=== PATIENT | female | born 1965 | race Caucasian/White ===

== ENCOUNTER 2025-07-01 09:13 | Outpatient (OUT) | payer OTHER, SELFPAY ==
--- OUTSIDE RECORDS SUMMARY | 2025-06-21 21:02 | XMS_ITS | Continuity of Care Document ---
Author Organization [facility] Address [address] [place] [address] Phone Care Team Providers Care Animal Control Officer Name Role Phone Alen Ban HUNG Primary Care Provider Rochelle Knapp APRN Attending Provider Kal Jarrett DO Attending Provider [phone] Ban Lowry DO Attending Provider Care Teams Patient Care Team Team Status: Active Member Role Status Dates Ban Lowry DO Primary Care Provider Active Visit Care Team Team Status: Inactive Member Role Status Dates Ban Lowry DO Primary Care Provider Active Start: March 29, 2025 End: March 29, 2025 Rochelle Knapp APRN Attending Provider Active Start: March 29, 2025 End: March 29, 2025 Visit Care Team Team Status: Inactive Member Role Status Dates Ban Lorwy DO Primary Care Provider Active Start: April 15, 2025 End: April 15, 2025 Kal ALEXANDRE DO [facility] Attending Provider Active Start: April 15, 2025 End: April 15, 2025 Visit Care Team Team Status: Inactive Member Role Status Dates Ban Lowry DO Primary Care Provider Active Start: May 14, 2025 End: May 14, 2025 Ban Lowry DO Attending Provider Active S tart: May 14, 2025 End: May 14, 2025 Visit Care Team Team Status: Inactive Member Role Status Dates Ban Lowry Primary Care Provider Active Start: May 14, 2025 End: May 14, 2025 Ban Lowry DO Attending Provider Active S tart: May 14, 2025 End: May 14, 2025 Visit Care Team Team Status: Inactive Member Role Status Dates Ban Lowry DO Primary Care Provider Active Start: May 24, 2025 End: May 24, 2025 Rochelle Knapp APRN Attending Provider Active Start: May 24, 2025 End: May 24, 2025 Visit Care Team Team Status: Inactive Member Role Status Dates Ban Lowry DO Primary Care Provider Active Start: June 04, 2025 End: June 04, 2025 Ban DO Alen Attending Provider Active S tart: June 04, 2025 End: June 04, 2025 Visit Care Team Team Status: Inactive Member Role Status Dates Ban Lowry DO Primary Care Provider Active Start: June 21, 2025 End: June 21, 2025 Ban Lowry DO Attending Provider Active S tart: June 21, 2025 End: June 21, 2025 Chief Complaint and Reason for Visit Chief Complaint Admit Date WMN f/u March 29, 2025 3:25 pm Pillars April 15, 2025 10:57 am pillars May 14, 2025 9:5 7am R25.2 May 14, 2025 10: 51am 6-8 week-WMN f/u May 24, 2025 3: 21pm I73.9 June 04, 2025 1: 48pm Z12.31 June 21, 2025 3:53pm Reason for Visit Admit Date Abnormal weight gain March 29, 2025 3:2 5pm ETOH abuse March 29, 2025 3:25 pm Family history of diabetes mellitus (DM) March 29, 2025 3:25pm GERD (gastroesophageal reflux disease) J 2024 3:25pm Hx of migraines March 29, 2025 3:25 pm Nicotine use disorder March 29, 2025 3: 25pm Obesity March 29, 2025 3:25 pm Obesity, Class I, BMI 30-34.9 March 29, 2025 3:25pm Current smoker May 14, 2025 9:5 7am Intermittent claudication May 14 9:57am Leg cramps May 14, 2025 9:5 7am Well adult exam May 14, 2025 9:5 7am Breast cancer screening by mammogram May 9:57am Abnormal weight gain May 24, 2025 3 :21pm Family history of diabetes mellitus (DM) May 24, 2025 3:21pm GERD (gastroesophageal reflux disease) A ugust 2024 3:21pm Hx of migraines May 24, 2025 3: 21pm Nicotine use disorder May 24, 2025 3:21pm Obesity May 24, 2025 3: 21pm Obesity, Class I, BMI 30-34.9 May 3:21pm Allergies, Adverse Reactions, Alerts Allergen Type Severity Reaction Last Updated Verified Status Comments bupropion Allergy Unknown Hives May 24, 2025 3:53pm Yes Active This patient does not appear to be Allergic to Albuterol. prednisone Allergy Unknown Rapid heart rate May 24, 2025 3:53pm Yes Active Social History Smoking Status Status Start Date End Date Date of Observa tion Smokes tobacco daily (finding) October 14, 1979 May 24, 2025 3:55pm Observation Status Observation Response Date of Response Legal Sex Female (finding) Sex Assigned At Female 1965 Gender Identity Cisgender/Not transgender (findi ng) May 14, 2025 Cisgender/Not transgender (findi ng) May 24, 2025 Cisgender/Not transgender (findi ng) May 14, 2025 Cisgender/Not transgender (findi ng) May 24, 2025 Cisgender/Not transgender (findi ng) May 14, 2025 Cisgender/Not transgender (findi ng) May 24, 2025 Cisgender/Not transgender (findi ng) May 24, 2025 Cisgender/Not transgender (findi ng) May 14, 2025 Cisgender/Not transgender (findi ng) May 14, 2025 Sexual Orientation Unknown Unknown Unknown Unknown Unknown Unknown Unknown Unknown Unknown Family History Relationship Condition Age at Onset Recorded Date/T otis father Hypertension Unknown Diabetes mellitus Unknown mother Hypertension Unknown Diabetes mellitus Unknown Malignant neoplasm Unknown Malignant neoplasm of cervix Unknown aunt Unknown Malignant neoplasm of breast Unknown maternal grandfather Malignant neoplasm Unknown Unknown Malignant neoplasm of throat Unknown maternal grandmother Unknown Hepatic cirrhosis Unknown paternal grandfather Myocardial infarction Unknown Heart disease Unknown Unknown brother Hypertension Unknown brother Heart disease Unknown mother Diabetes mellitus Unknown Malignant neoplasm Unknown Hypertension Unknown father Diabetes mellitus Unknown Hypertension Unknown brother Heart disease Unknown Problems Active Problems Medical Problem Onset Date Status Vitamin D insufficiency Unknown Active Nicotine abuse Unknown Active Hx of migraines Unknown Active History of IBS Unknown Active Palpitations Unknown Active ETOH abuse Unknown Active Family history of diabetes mellitus (DM) Unknown Active Abnormal weight gain Unknown Active Intermittent claudication Unknown Active Depression Unknown Active Diarrhea Unknown Active Leg cramps Unknown Active Obesity, Class I, BMI 30-34.9 Unknown Ac tive Cervical spondylosis Unknown Active Well adult exam Unknown Active Nicotine use disorder Unknown Active Abdominal bloating Unknown Active Acute bronchitis Unknown Active Anhedonia Unknown Active Elevated blood pressure reading with diagnosis o f hypertension Unknown Active GERD (gastroesophageal reflux disease) Unknown Active Abdominal pain Unknown Active Hypertension Unknown Active Nausea Unknown Active Obesity Unknown Active Arthritis of left hand Unknown Active Current smoker Unknown Active Smoker Unknown Active Medications Medication Status Dose Units Route Directions Qty Days St art Date Stop Date End Date Instructions Adherence Sumatriptan Succinate 100 mg tablet Discont inued 0 .ROUTE .COMPLEX December 19, 2023 8:02am April 09, 2024 10:15 am TAKE 1 TABLET BY MOUTH ONCE DAILY NEEDED FOR migraine Losartan-Hy drochloroth iazide 100-25 mg tablet Discont inued 0 .ROUTE .COMPLEX December 20, 2023 11:09a m April 09, 2024 10:52 am TAKE ONE (1) TABLET BY MOUTH ONCE DAILY Atorvastati n 20 mg tablet Discont inued 0 .ROUTE .COMPLEX December 20, 2023 11:09a m April 09, 2024 10:52 am TAKE ONE (1) TABLET BY MOUTH ONCE DAILY Sumatriptan Succinate 100 mg tablet Discont inued 0 .ROUTE .COMPLEX April 09, 2024 10:15a m April 09, 2024 10:52 am TAKE 1 TABLET BY MOUTH ONCE DAILY NEEDED FOR migraine Liraglutide (Victoza 2-Erick) 0.6 mg/0.1 mL (18 mg/3 mL) pen injector Discont inued 0 SUBCUT .COMPLEX May 06, 2024 2:06pm Augus t 2023 1:39p m first dose 0.3 mg sq, then if tolerated day 2 inject 0.6mg subcutaneousl y once daily x 7 days; increase weekly by 0.6 mg, not to exceed 1.8mg/day subcut Semaglutide (Ozempic) 0.25 mg or 0.5 mg (2 mg/3 mL) pen injector Discont inued 0 .ROUTE .COMPLEX 3 Octobe r 2023 6:59am Octob er 2023 3:02p m Administer 0.25mg subcutaneousl y once weekly x 4 weeks, then increase to 0.5mg weekly Sumatriptan Succinate 100 mg tablet Active 100 MG PO Daily as needed for migraine headache 2024 10:11a m Unknown Cholecalcif manish (Vitamin D3) 50 mcg (2,000 unit) capsule Active 50 MCG PO Daily 2024 1:00am Unknown Losartan-Hy drochloroth iazide 50-12.5 mg tablet Active 1 TAB PO Daily 2024 9:16am further RX should come from PCP Unknown Semaglutide (Ozempic) 1 mg/dose (4 mg/3 mL) pen injector Discont inued 0 .ROUTE .COMPLEX 2024 11:44a m December 14, 2024 5:04p m Administer 1mg subcutaneousl y once weekly Atorvastati n 20 mg tablet Active 0 .ROUTE .COMPLEX January 14, 2025 9:52am TAKE ONE (1) TABLET BY MOUTH ONCE DAILY Unknown Semaglutide (Ozempic) 1 mg/dose (4 mg/3 mL) pen injector Discont inued 0 .ROUTE .COMPLEX 3 February 26, 2025 3:33pm March 29, 2025 4:22p m Administer 1mg subcutaneousl y once weekly Atorvastati n 20 mg tablet Discont inued 20 MG PO Bedtime March 08, 2020 12:00a m December 20, 2023 11:09 am Sumatriptan Succinate (Imitrex) 100 mg Tablet Discont inued 100 MG PO Once as needed for Migraine Headache March 08, 2020 12:00a m December 19, 2023 8:02a m Losartan-Hy drochloroth iazide 100-25 mg tablet Discont inued 1 TAB PO Daily March 08, 2020 12:00a m December 20, 2023 11:09 am Chlordiazep oxide-Clidi nium (Librax (With Clidinium)) 5-2.5 mg Capsule Discont inued 1 CAP PO Three times daily March 08, 2020 12:00a m April 09, 2024 10:50 am Magnesium Oxide 250 mg magnesium Tablet Discont inued 250 MG PO Daily March 08, 2020 12:00a m April 09, 2024 10:51 am Esomeprazol e Magnesium (Nexium 24hr) 20 mg Capsule,Del ayed Release(Dr/ Ec) Active 20 MG PO Daily March 08, 2020 12:00a m Unknown Diclofenac Sodium 1 % Gel Discont inued 2 GM TOPICA L Four times daily March 08, 2020 12:00a m April 09, 2024 10:50 am Naproxen Sodium (Aleve) 220 mg Capsule Discont inued 220 MG PO Daily March 08, 2020 12:00a m April 09, 2024 10:52 am Pyrilamine- Dextrometho rphan ([place] Dmt) 30-30 mg Tablet Discont inued 1 CAP PO Q6H as needed for Cough March 08, 2020 12:00a m Augus t 2023 2:01p m Naproxen Sodium (Aleve) 220 mg capsule Active 220 MG PO Daily as needed for pain April 09, 2024 10:51a m Unknown Azithromyci n (Zithromax) 250 mg tablet Discont inued 250 MG PO daily 4 4 Novemb er 2018 1:00am March 08, 2020 1:30p m First dose given in ED Albuterol Sulfate 90 mcg/actuati on HFA aerosol inhaler Discont inued 2 INH INHALA TION EVERY 4-6 HOURS as needed for shortness of breath or wheezing 18 Novemb er 2018 1:00am April 09, 2024 10:50 am administer with spacer Atorvastati n 20 mg tablet Discont inued 20 MG PO Daily April 09, 2024 10:50a m January 14, 2025 9:52a m Losartan-Hy drochloroth iazide 100-25 mg tablet Discont inued 1 TAB PO Daily April 09, 2024 10:51a m Decem rupa 2023 4:34p m Sumatriptan Succinate 100 mg tablet Discont inued 100 MG PO Daily as needed for migraine headache April 09, 2024 10:52a m Janua ry 2024 10:12 am Digestive Enzymes capsule Discont inued 1 CAP PO Daily April 09, 2024 12:00a m Augus t 2023 2:00p m administer with food; swallow whole; do not crush/chew/di ssolve/break/ cut Liraglutide (Victoza 2-Erick) 0.6 mg/0.1 mL (18 mg/3 mL) pen injector Discont inued 0 SUBCUT .COMPLEX 6 April 09, 2024 12:00a m May 06, 2024 2:06p m first dose 0.3 mg sq, then if tolerated day 2 inject 0.6mg subcutaneousl y once daily x 7 days; increase weekly by 0.6 mg, not to exceed 1.8mg/day subcut Pen Needle, Diabetic (Bd Ultra-Fine Tess Pen Needle) 32 gauge x 5/32 needle Discont inued 0 .ROUTE .MEDSUPPLY 300 April 09, 2024 12:00a m December 14, 2024 4:16p m As directed Semaglutide (Ozempic) 0.25 mg or 0.5 mg (2 mg/3 mL) pen injector Discont inued 0.25 MG SUBCUT every week 3 May 21, 2024 12:00a m Octob er 2023 7:00a m 0.25 mg weekly x 4 weeks, then increase to 0.5 mg weekly thereafter. BMI 32.4 Semaglutide (Ozempic) 0.25 mg or 0.5 mg (2 mg/3 mL) pen injector Discont inued 0.5 MG SUBCUT every week Octobe r 2023 3:01pm Octob er 2023 3:31p m Semaglutide (Ozempic) 1 mg/dose (4 mg/3 mL) pen injector Discont inued 1 MG SUBCUT every week 3 Julobe r 2023 12:00a m Decem rupa 2023 4:34p m BMI 32.1 Losartan-Hy drochloroth iazide 50-12.5 mg tablet Discont inued 1 TAB PO Daily 30 Decemb er 2023 1:00am Octua ry 2024 9:16a m further RX should come from PCP Semaglutide (Ozempic) 1 mg/dose (4 mg/3 mL) pen injector Discont inued 1 MG SUBCUT every week 3 Decemb er 2023 4:33pm Janua ry 2024 11:45 am BMI 32.1 Mecobalamin (Vitamin B12) 1,000 mcg tablet,chew able Active 1000 MCG PO Daily 2024 1:00am Unknown Albuterol Sulfate 90 mcg/actuati on HFA aerosol inhaler Active 2 PUFF INHALA TION EVERY 4-6 HOURS as needed for shortness of breath or wheezing 6.7 30 r y 2024 1:00am Unknown Semaglutide (Ozempic) 1 mg/dose (4 mg/3 mL) pen injector Discont inued 1 MG SUBCUT every week 3 December 14, 2024 5:03pm February 26, 2025 3:33p m Semaglutide (Ozempic) 1 mg/dose (4 mg/3 mL) pen injector Discont inued 1 MG SUBCUT every week 3 March 29, 2025 4:21pm Augus t 2024 4:19p m BMI 30.6 Fluoxetine 20 mg capsule Discont inued 20 MG PO Daily 30 Novemb er 2023 1:00am Dece rupa 2023 4:07p m Semaglutide (Ozempic) 1 mg/dose (4 mg/3 mL) pen injector Active 1 MG SUBCUT every week May 24, 2025 4:19pm BMI 30.6 Unknown Immunizations Immunization Event Date Not Given Reason Dose Number Architecture Manager Lot Number Vaccine Information Statement (VIS) Detail Administration Location COVID-19 mRNA-1273 (Moderna) October 27, 2020 [id number] [facility] COVID-19 mRNA-1273 (Moderna) November 24, 2020 [id number] [facility] COVID-19 mRNA-1273 (Moderna) January 18, 2022 Influenza, injectable, MDCK, pf July 21, 2019 Influenza Quadrivalent PF MDCK August 06, 2018 Quadrivalent Influenza July 14, 2019 Quadrivalent Influenza July 18, 2016 [id number] Quadrivalent Influenza June 26, 2017 [id number] Quadrivalent Influenza July 13, 2022 [id number] Quadrivalent Influenza July 18, 2023 [id number] Trivalent Influenza Vaccine July 13, 2021 Procedures Procedure Date Performed Status MM screening mammo BI w/CAD June 21, 2025 3:55pm completed US art pvr/post LE June 04, 2025 1:50pm comp leted Relevant Diagnostic Tests and/or Laboratory Data Laboratory Results Test Collection Date/Time Result Date/Time Result Interpretation Reference Range Result Comment Performing Site Corrected White Blood Count April 15, 2025 10:59am April 15, 2025 2:28pm 7.5 10*3/uL 3.8-11.6 [facility] [id number] [address] [place] [address] 64690 Uncorrect ed WBC Count April 15, 2025 10:59am April 15, 2025 2:28pm 7.5 10*3/uL 3.8-11.6 [facility] [id number] [address] [place] [address] [id number] Red Blood Count April 15, 2025 10:59am April 15, 2025 2:28pm 4.56 10*6/uL 3.60-5.00 [facility] [id number] [address] [place] [address] 33695 Hemoglobi n April 15, 2025 10:59am April 15, 2025 2:28pm 14.1 g/dL 11.8-15.4 [facility] [id number] [address] [place] [address] 61521 Hematocri t April 15, 2025 10:59am April 15, 2025 2:28pm 42.0 % 34.0-46.4 [facility] [id number] [address] [place] [address] 45915 Mean Corpuscul ar Volume April 15, 2025 10:59am April 15, 2025 2:28pm 92.0 fL 80-100 [facility] [id number] [address] [place] [address] 29071 Mean Corpuscul ar Hemoglobi n April 15, 2025 10:59am April 15, 2025 2:28pm 30.8 pg 24.7-34.3 [facility] [id number] [address] [facility] [address] Mean Corpuscul ar Hemoglobi n Concent April 15, 2025 10:59am April 15, 2025 2:28pm 33.5 g/dL 32.0-35.0 [facility] [id number] [address] [facility] 28696 Red Cell Distribut ion Width April 15, 2025 10:59am April 15, 2025 2:28pm 14.0 % 11.9-15.3 [facility] [id number] [address] [facility] 90959 Platelet Count April 15, 2025 10:59am April 15, 2025 2:28pm 321 10*3/uL 150-450 [facility] [id number] [address] [facility] [address] Mean Platelet Volume April 15, 2025 10:59am April 15, 2025 2:28pm 8.2 fL 6.3-10.7 [facility] [id number] [address] [facility] 545[address] Neutrophi ls (%) (Auto) April 15, 2025 10:59am April 15, 2025 2:28pm 54.5 % . [facility] [id number] [address] [facility] 480[address] Lymphocyt es (%) (Auto) April 15, 2025 10:59am April 15, 2025 2:28pm 36.3 % . [facility] [id number] [address] [facility] [address] Monocytes (%) (Auto) April 15, 2025 10:59am April 15, 2025 2:28pm 7.9 % . [facility] [id number] [address] [facility] 150[address] Eosinophi ls (%) (Auto) April 15, 2025 10:59am April 15, 2025 2:28pm 0.9 % . [facility] [id number] [address] [facility] [address] Basophils (%) (Auto) April 15, 2025 10:59am April 15, 2025 2:28pm 0.4 % . [facility] [id number] [address] [facility] 07426 Nucleated RBC Relative Count (auto) April 15, 2025 10:59am April 15, 2025 2:28pm 0.2 /100{WB C} 0-0.5 [facility] [id number] [address] [place] [id number] Neutrophi ls # (Auto) April 15, 2025 10:59am April 15, 2025 2:28pm 4.1 10*3/uL 1.8-7.7 [facility] [id number] [address] [place], [place] [address] Lymphocyt es # (Auto) April 15, 2025 10:59am April 15, 2025 2:28pm 2.7 10*3/uL 1.00-4.8 [facility] [id number] [address] [place], [place] [address] Monocytes # (Auto) April 15, 2025 10:59am April 15, 2025 2:28pm 0.6 10*3/uL 0.0-0.8 [facility] [id number] [address] [place], [place] [address] Eosinophi ls # (Auto) April 15, 2025 10:59am April 15, 2025 2:28pm 0.1 10*3/uL 0.0-0.45 [facility] [id number] [address] [place], [place] [address] Basophils # (Auto) April 15, 2025 10:59am April 15, 2025 2:28pm 0.0 10*3/uL 0.0-0.2 [facility] [id number] [address] [place], [place] [address] Glucose Level April 15, 2025 10:59am April 15, 2025 2:50pm 91 mg/dL 70-100 [facility] [id number] [address] [place], [place] [address] Blood Urea Nitrogen April 15, 2025 10:59am April 15, 2025 2:50pm 18 mg/dL 7-25 [facility] [id number] [address] [place], [place] [address] Creatinin e April 15, 2025 10:59am April 15, 2025 2:50pm 0.75 mg/dL 0.60-1.20 [facility] [id number] [address] [place], [place] [address] Estimated GFR (CKD-EPI) April 15, 2025 10:59am April 15, 2025 2:50pm > 60.0 mL/Min [facility] [id number] [address] [facility] [address] Sodium Level April 15, 2025 10:59am April 15, 2025 2:50pm 136 mmol/L 136-145 [facility] [id number] [address] [place] [id number] Potassium Level April 15, 2025 10:59am April 15, 2025 2:50pm 4.3 mmol/L 3.5-5.1 [facility] [id number] [address] [facility] [address] Chloride Level April 15, 2025 10:59am April 15, 2025 2:50pm 99 mmol/L 98-107 [facility] [id number] [address] [place] [id number] Carbon Dioxide Level April 15, 2025 10:59am April 15, 2025 2:50pm 29.7 mmol/L 21.0-31.0 [facility] [id number] [address] [facility] 25[address] Anion Gap April 15, 2025 10:59am April 15, 2025 2:50pm 11.6 mEq/L 6.0-15.0 [facility] [id number] [address] [facility] [address] Calcium Level April 15, 2025 10:59am April 15, 2025 2:50pm 9.9 mg/dL 8.6-10.3 [facility] [id number] [address] [place] [id number] Magnesium Level May 14, 2025 10:55am May 14, 2025 2:30pm 1.9 mg/dL 1.9-2.7 [facility] [id number] [address] [facility] [address] Total Protein April 15, 2025 10:59am April 15, 2025 2:50pm 7.0 g/dL 6.4-8.9 [facility] [id number] [address] [facility] [address] Albumin April 15, 2025 10:59am April 15, 2025 2:50pm 4.5 g/dL 3.5-5.7 [facility] [id number] [address] [facility] 26234 Globulin April 15, 2025 10:59am April 15, 2025 2:50pm 2.5 g/dL [facility] [id number] [address] [facility] 25404 Albumin/G lobulin Ratio April 15, 2025 10:59am April 15, 2025 2:50pm 1.8 [facility] [id number] [address] [place] [address] 28621 Total Bilirubin April 15, 2025 10:59am April 15, 2025 2:50pm 0.6 mg/dL 0.3-1.0 [facility] [id number] [address] [place] [address] 46916 Aspartate Amino Transf (AST/SGOT ) April 15, 2025 10:59am April 15, 2025 2:50pm 24 U/L 13-39 [facility] [id number] [address] [facility] [address] Alanine Aminotran sferase (ALT/SGPT ) April 15, 2025 10:59am April 15, 2025 2:50pm 32 U/L 7-52 [facility] [id number] [address] [place] [address] 49242 Alkaline Phosphata se April 15, 2025 10:59am April 15, 2025 2:50pm 94 U/L 34-104 [facility] [id number] [address] [place] [address] 07889 Iron Level May 14, 2025 10:55am May 14, 2025 2:30pm 80 ug/dL 50-212 [facility] [id number] [address] [place] [address] 55646 Total Iron Binding Capacity May 14, 2025 10:55am May 14, 2025 2:30pm 367 ug/dL 255-450 [facility] [id number] [address] [place] [address] 60808 Iron Saturatio n May 14, 2025 10:55am May 14, 2025 2:30pm 21.8 % 20-50 [facility] [id number] [address] [place] [address] 43274 Transferr in May 14, 2025 10:55am May 14, 2025 2:30pm 262 mg/dL 203-362 [facility] [id number] [address] [facility] [address] Ferritin May 14, 2025 10:55am May 14, 2025 2:51pm 94.8 ng/mL 11.0-306.8 [facility] [id number] [address] [place] [address] 29320 Cholester ol Level April 15, 2025 10:59am April 15, 2025 2:50pm 138 mg/dL Below low normal 140-200 Chol less than 200 mg/dl low riskChol 201-239 mg/dl borderline riskChol 240 mg/dl and greater high risk [facility] [id number] [address] [facility] [address] HDL Cholester ol April 15, 2025 10:59am April 15, 2025 2:50pm 66 mg/dL 23-92 HDL CHOL ATP-III CLASSIFICATI ON Cardiovascul ar RiskHDL > or equal to 60 mg/dL LOWHDL < 40 mg/dL HIGH [facility] [id number] [address] [facility] [address] Triglycer ides Reflex April 15, 2025 10:59am April 15, 2025 2:50pm 95 mg/dL 0-149 TRIG ATP III CLASSIFICATI ONTRIG less than 150 mg/dL NormalTRIG 150-199 mg/dL Borderline highTRIG 200-500 mg/dL High TRIG greater than 500 mg/dL Very highStandard traceable to the Center for Disease Conrtrol and Prevention (CDC) test method. [facility] [id number] [address] [facility] [address] LDL Cholester ol, Calculate d April 15, 2025 10:59am April 15, 2025 2:50pm 53 mg/dL 0-100 LDL ATP III CLASSIFICATI ONLDL less than 100 mg/dL OptimalLDL 100-129 mg/dL Near or above optimalLDL 130-159 mg/dL Borderline highLDL 160-189 mg/dL HighLDL greater than 189 mg/dL Very high [facility] [id number] [address] [facility] [address] VLDL Cholester ol April 15, 2025 10:59am April 15, 2025 2:50pm 19 mg/dL [facility] [id number] [address] [place] [address] 04577 Cholester ol/HDL Ratio April 15, 2025 10:59am April 15, 2025 2:50pm 2.1 <5.0 [facility] [id number] [address] [place] [address] 55028 Thyroid Stimulati ng Hormone Gen May 14, 2025 10:55am May 14, 2025 2:46pm 1.18 u[iU]/m L 0.45-5.33 [facility] [id number] [address] [place] [address] 41114 25-Hydrox y Vitamin D Total May 14, 2025 10:55am May 14, 2025 3:00pm 46.4 ng/mL 30-100 VITAMIN D STATUS 25(OH)VITAMI N D RANGE (ng/mL) Deficient <20 Insufficient 20 to <30Sufficien t 30 to 100Reference : Lyubov MADISON,Alexa PELLETIER, Ashley NARAYANAN, et al. Evaluation,t reatment, and prevention of vitamin D deficiency; an Endocrine Society clinical practice guideline. JCEM. 2010; 96(7):1911-3 0. [facility] [id number] [address] [place] [address]09 Pharmacy Creatinin e Clearance (Chem April 15, 2025 10:59am April 15, 2025 2:50pm N/A [facility] [id number] [address] [place] [address]84 Diagnostic Imaging Reports Author Chad Rivera [facility] Report Date/Time June 21, 2025 4:16pm [facility] [address] [place] [address] [place], [place] [id number] Mammography Report Signed Patient: Catherine Olsen MR#: [id number] : 1965 Acct:[id number] Age/Sex: 60 / F Adm Date: 5 Loc: DC Room: Type: [facility] [address] Attending Dr: Ban Lowry DO Ordering Provider: Ban Lowry DO Date of Service: 06/21/25 Procedure(s): MM screening mammo BI w/CAD Accession Number(s): ([id number]) MM/MM screening mammo BI w/CAD: Z12.31 - Encounter for screening mammogram for malignant ... Copies to: Ban Alen, ~ BILATERAL Screening Full Field digital mammogram with 3-D imaging. Full field digital CC and MLO imaging performed. CAD utilized. COMPARISON: 11/14/2023 HISTORY: Annual screening BREAST COMPOSITION: Scattered fibroglandular densities of the breast parenchyma identified BREAST CALCIFICATIONS: Benign calcifications present. VASCULAR CALCIFICATIONS: None ARCHITECTURAL DISTORTION: None BREAST NODULE: None AXILLARY LYMPH NODES: Normal POSTSURGICAL CHANGES: None MM/MM screening mammo BI w/CAD IMPRESSION: No mammographic evidence of malignancy. Routine follow-up recommended in one year. RESULT CODE: 2 Benign Findings(s) DENSITY CODE: 2 (approximately 25-50% glandular) There are scattered areas of fibroglandular density. FOLLOW UP: 1YR THE FALSE-NEGATIVE RATE OF MAMMOGRAPHY IS APPROXIMATELY 10%. IMAGING OF A PALPABLE ABNORMALITY MUST BE BASED ON CLINICAL GROUNDS. PATIENT WAS ENTERED INTO A REMINDER SYSTEM WITH A TARGET DUE DATE FOR THE NEXT MAMMOGRAM. Impression dictated by: Chad Rivera M.D. 06/21/2025 4:16 PM Dictation Location: [facility] Dictated By: Chad Rivera DO 06/21/25 161 Signed By: <Electronically signed by Chad Rivera DO in OV> 06/21/25 1616 Vital Signs Vital Reading Result Reference Range Collection Date/Time Height 63.43 [in_i] March 29, 2025 3:34pm Weight 79.50 kg March 29, 2025 3:34pm Heart Rate 94 /min 60-100 March 29, 2025 3:34pm Respiratory rate 18 /min 12-March 29, 2025 3:34pm Oxygen saturation by Pulse oximetry 98 % 95-100 March 29, 2025 3:34 pm BP Systolic 99 mm[Hg] 100-140 March 29, 2025 3:34pm BP Diastolic 67 mm[Hg] 60-100 March 29, 2025 3:34pm BMI (Body Mass Index) 30.6 kg/m2 March 142024 3:34pm Height 63.43 [in_i] May 14 9:59am Weight 79.60 kg May 14 9:59am Heart Rate 88 /min 60-100 May 14 9:59am Respiratory rate 18 /min 12-24 May 14, 2025 9:59am Oxygen saturation by Pulse oximetry 98 % 95-100 May 14, 2025 9:5 9am BP Systolic 102 mm[Hg] 100-140 May 14 9:59am BP Diastolic 78 mm[Hg] 60-100 May 14 9:59am BMI (Body Mass Index) 30.7 kg/m2 May 14, 2025 9:59am Height 63.31 [in_i] May 24 3:47pm Weight 77.65 kg May 24 3:47pm Heart Rate 87 /min 60-100 May 24 3:47pm Respiratory rate 18 /min -May 3:47pm BP Systolic 113 mm[Hg] 100-140 May 24 3:47pm BP Diastolic 78 mm[Hg] 60-100 May 24 3:47pm BMI (Body Mass Index) 30.0 kg/m2 May 24, 2025 3:47pm Advance Directives Advance Directive Response Recorded Date/ Time Advance Directives No June 7:06am Insurance Providers Guarantor Yogesh Sawant Address [address] [facility] [address] Contact Info. Home Phone: Payer Policy Id Subscriber's Name Subscriber Id Effe ctive Date Expiration Date [facility] Employees [id number] Yogesh Sawant [id number] Encounters Encounter Location(s) Arrival/Admit Date Discharge/Depart Date Provider(s) Departed Physician/Prov ider Office Visit -[facility] March 29, 2025 3:25pm March 29, 2025 4:18pm Rochelle Knapp APRN Departed Referred -[facility] April 15, 2025 10:57am April 15, 2025 10:58am Kingsley Burnham DO Departed Physician/Prov ider Office Visit -[facility] May 14, 2025 9:57am May 14, 2025 10:48am Ban Lowry DO Departed Clinical -Lab [facility] May 14, 2025 10:51am May 14, 2025 10:52am Ban Lowry DO Departed Physician/Prov ider Office Visit -[facility] May 24, 2025 3:21pm May 24, 2025 4:38pm Rochelle Knapp APRN Departed Clinical -Ultrasound [facility] June 04, 2025 1:48pm June 04, 2025 1:49pm Ban Lowry DO Departed Clinical [facility] June 21, 2025 3:53pm June 21, 2025 3:54pm Ban Lowry DO Recent Diagnosis Onset Date Admit Date Abnormal weight gain Unknown March 29, 2025 3:25pm ETOH abuse Unknown March 29, 2025 3:25pm Family history of diabetes mellitus (DM) Unknown March 29, 2025 3:25pm GERD (gastroesophageal reflux disease) Unknown March 29, 2025 3:25pm Hx of migraines Unknown March 29, 2025 3:25pm Nicotine use disorder Unknown March 29, 2025 3:25pm Obesity Unknown March 29, 2025 3:25pm Obesity, Class I, BMI 30-34.9 Unknown 2024 3:25pm Current smoker Unknown May 14, 2025 9:57am Intermittent claudication Unknown May 14, 2025 9:57am Leg cramps Unknown May 14, 2025 9:57am Well adult exam Unknown May 14, 2025 9:57am Breast cancer screening by mammogram Unknown May 14, 2025 9:57am Abnormal weight gain Unknown May 3:21pm Family history of diabetes mellitus (DM) Unknown May 24, 2025 3:21pm GERD (gastroesophageal reflux disease) Unknown May 24, 2025 3:21pm Hx of migraines Unknown May 24 3:21pm Nicotine use disorder Unknown May 3:21pm Obesity Unknown May 24 3:21pm Obesity, Class I, BMI 30-34.9 Unknown [facility] 2024 3:21pm Assessments Diagnosis Onset Date Resolution Status Admit Date Abnormal weight gain acute March 29, 2025 3:25pm ETOH abuse acute March 29 3:25pm Family history of diabetes mellitus (DM) acute March 29, 2025 3:25pm GERD (gastroesophageal reflu x disease) acute March 29, 2025 3:25pm Hx of migraines acute March 3:25pm Nicotine use disorder acute Mar 3:25pm Obesity acute March 29 3:25pm Obesity, Class I, BMI 30-34.9 acute March 29, 2025 3:25pm Current smoker acute May 9:57am Intermittent claudication acute May 14, 2025 9:57am Leg cramps acute May 14 9:57am Well adult exam acute May 9:57am Breast cancer screening by mammogram noneactive May 14, 2025 9:57am Abnormal weight gain acute 2024 3:21pm Family history of diabetes mellitus (DM) acute May 24 3:21pm GERD (gastroesophageal reflu x disease) acute May 24 3:21pm Hx of migraines acute May 242024 3:21pm Nicotine use disorder acute May 3:21pm Obesity acute May 24, 025 3:21pm Obesity, Class I, BMI 30-34.9 acute May 24, 2025 3:21pm Plan of Treatment Author Rochelle [facility] Authored March 29, 2025 4:22 pm 03/29/2025 returns for weight management follow-up. Feels her nutritional effort is fair since her last visit. She feels that she is not doing what she can if she is not currently exercising. After discussion she does describe significant bilateral foot pain with just short distances. Historically saw podiatry and wanted to do foot surgery for which she did not feel was what she could do at the time. She also struggles with eating dinner late. She will discuss this with her and see if they can get on a better eating schedule. She does drink alcohol 4 times per week especially in the summer. She continues to smoke but less. She is tolerating Ozempic 1 mg subcu weekly. She has seen the registered dietitian in June last year. Return 12/14/2024, returns for weight management follow-up. Reports her nutritional effort is fair since her last visit, she is not logging, she is exercising walking twice per week. Is that she is often hungry and always finding that she wants to eat . She denies skipping any meals. She does endorse having poor to no protein at breakfast. She was started on Prozac for mood, was feeling fatigued, and now is wondering if fatigue could have been her blood pressure running low. Could be reconsidered in the future although her mood is good today. Reports significant reduction in ETOH consumption and IBS while on Victoza, and now Ozempic HPI Initial WMN 04/09/2024: Patient is a 59-year-old female, employee of [employer] with traditional insurance. She has history of hyperlipidemia, reflux disease, hypertension. She had migraines significantly worse premenopause. She does have some issues with emphysema secondary to long-term nicotine use. Does have family history of gzl-dflqaqt-[id number] diabetes. She reports her weight issues to have begun around age [age]. She feels that menopause was strong culprit, she does have a sedentary job, suffers with depression, not active. Does drink alcohol, (already cut back over the last 3 to 5 months now 4 to 5/day, increase significantly during COVID) High school graduation weight 145 pounds. Highest non weight 196 pounds she is 191 pounds today. She has had recent back issues that have even further decreased her physicality. She does relate increased appetite, stress eating, lack of exercise and activity, health issues, family weight issues, constant food thoughts and cravings and depression to be culprits of her weight excess. She also struggles with portability, cooking for others, willpower and time. She does report early menopause at age 45 in 2010, never had issues with dysmenorrhea prior to that. She has gained 20 pounds since menopause. Historically saw Dr. Fofana then Dr. Quintero for IBS. She said historically she needed to be near her bathroom quick onset nonpainful bowel movements with constant bloating. She was on Librax for some time. She is pending establishing with Dr. Cardoza. Highest Weight: 196 lbs Program Starting Date/Weight: 04/09/2024 / 191. lbs , BMI 33.1 [employer] [facility]-- [facility] Current Weight: 177.7 lbs +/-: Down 6.6 lbs since start and down 18.3 lbs from high weight. BMI now 30.9-- Originally on Victoza till shortage then transitioned to Ozempic. Current Weight: 175.3 lbs +/-: down 2.4 lbs since last visit, down 15.3 lbs from original start and 20.7 lbs high weight. , BMI now 30.6 Self-imposed goal of down Baseline body comp date: 03/29/2025 /due again q visit or with precipitous gain or loss hx of hives with bupropion-- listed as allergy now tolerating Ozempic 1.0 mg weekly-- conisder increase next visit. works from home will reach out to podiatry-- bilateral foot pain, discoloration when sitting. Limits her walking for which she desires. Increase protein especially at breakfast Blood pressure medications reduced by primary care, no longer with dizziness when standing Stopped Prozac-- may consider reeval once BP not overtreated. Mood good today Lead with vegetables, plant based protein, hearty breakfast, tapering intake thru the day. Decrease processed foods, increasing foods from farm, not factory. Avoid sugar sweetened beverages. Patient denies personal or family history of MTC or MENS syndrome (discussed in layman's terms). Patient denies history of pancreatitis Already notable reduction in ETOH and Smoking with Ozempic Ongoing conversation regarding nicotine cessation--not interested in cessation at this juncture Slow intentional eating. Identify is snacking is compelling or habit established with Dr. Cardoza had EGD with biopsy WNL. On OTC Omeprazole-- consider trial off in future. VAISHNAVI SANTAMARIA, had individual after group 06/2024 DCS 8 weeks Author Rochelle Knapp [facility] Authored May 24, 2025 4: 56pm 8 08/2025 returns for weight management follow-up. Feels her nutritional effort is good since her last visit. She feels that her struggle is not being active enough. She does have some lower extremity pain. She does have some testing pending on her lower extremities to assess issues. She does not see podiatry at this juncture, but foot pain is limiting her activity. She does have a pool and stays more active in the summer in the pool. She is tolerating Ozempic 1 mg subcu weekly. She does not necessarily feel that this makes her fall but her weight is declining with ease. Feels that her alcohol consumption has considerably reduced. She does continue to smoke. She we will continue working for [facility] initiatives but her job is outsourced and her insurance will be changing as of end june. She is unclear whether Ozempic will be covered at that juncture. We did talk about potential options. She has had hive type reactions to bupropion. She does report being an emotional eater. 03/29/2025 returns for weight management follow-up. Feels her nutritional effort is fair since her last visit. She feels that she is not doing what she can if she is not currently exercising. After discussion she does describe significant bilateral foot pain with just short distances. Historically saw podiatry and wanted to do foot surgery for which she did not feel was what she could do at the time. She also struggles with eating dinner late. She will discuss this with her and see if they can get on a better eating schedule. She does drink alcohol 4 times per week especially in the summer. She continues to smoke but less. She is tolerating Ozempic 1 mg subcu weekly. She has seen the registered dietitian in June last year. Return 12/14/2024, returns for weight management follow-up. Reports her nutritional effort is fair since her last visit, she is not logging, she is exercising walking twice per week. Is that she is often hungry and always finding that she wants to eat . She denies skipping any meals. She does endorse having poor to no protein at breakfast. She was started on Prozac for mood, was feeling fatigued, and now is wondering if fatigue could have been her blood pressure running low. Could be reconsidered in the future although her mood is good today. Reports significant reduction in ETOH consumption and IBS while on Victoza, and now Ozempic HPI Initial WMN 04/09/2024: Patient is a 59-year-old female, employee of [employer] with traditional insurance. She has history of hyperlipidemia, reflux disease, hypertension. She had migraines significantly worse premenopause. She does have some issues with emphysema secondary to long-term nicotine use. Does have family history of iln-sdvrprr-uvdzatezm diabetes. She reports her weight issues to have begun around age [age]. She feels that menopause was strong culprit, she does have a sedentary job, suffers with depression, not active. Does drink alcohol, (already cut back over the last 3 to 5 months now 4 to 5/day, increase significantly during COVID) High school graduation weight 145 pounds. Highest non weight 196 pounds she is 191 pounds today. She has had recent back issues that have even further decreased her physicality. She does relate increased appetite, stress eating, lack of exercise and activity, health issues, family weight issues, constant food thoughts and cravings and depression to be culprits of her weight excess. She also struggles with portability, cooking for others, willpower and time. She does report early menopause at age 45 in 2010, never had issues with dysmenorrhea prior to that. She has gained 20 pounds since menopause. Historically saw Dr. Fofana then Dr. Quintero for IBS. She said historically she needed to be near her bathroom quick onset nonpainful bowel movements with constant bloating. She was on Librax for some time. She is pending establishing with Dr. Cardoza. Highest Weight: 196 lbs Program Starting Date/Weight: 04/09/2024 / 191. lbs , BMI 33.1 [employer] [facility] employee-- [employer] Current Weight: 171.2 lbs +/-: Down 6.5 lbs since start and down 19.8 lbs from high weight. BMI now 30.9 30.0-- Originally on Victoza till shortage then transitioned to Ozempic. Baseline body comp date: 03/29/2025 /due again q visit or with precipitous gain or loss. Notable reduction in fat mass, skeletal muscle mass equivocal. hx of hives with bupropion-- listed as allergy now tolerating Ozempic 1.0 mg weekly-- conisder increase next visit. works from home will reach out to podiatry-- bilateral foot pain, discoloration when sitting. Limits her walking for which she desires. Increase protein especially at breakfast x Blood pressure medications reduced by primary care, no longer with dizziness when standing Stopped Prozac-- hx Lead with vegetables, plant based protein, hearty breakfast, tapering intake thru the day. Decrease processed foods, increasing foods from farm, not factory. Avoid sugar sweetened beverages. Patient denies personal or family history of MTC or MENS syndrome (discussed in layman's terms). Patient denies history of pancreatitis Already notable reduction in ETOH and Smoking with Ozempic Ongoing conversation regarding nicotine cessation--not interested in cessation at this juncture Slow intentional eating. Identify is snacking is compelling or habit established with Dr. Cardoza had EGD with biopsy WNL. On OTC Omeprazole daily and taking eleuterio seltzer couple times per week-- Avoid contributing/ Fatty foods. RD AG DCS 8-10 weeks, assess insurance changes Author Ban Lowry [facility] Authored May 14, 2025 10: 52am Patients states she has been having issues with her B/L legs/feet. She states its been going on for about a month, where she notices her feet/leg start to get extremely tight at night. Sometimes it is to the point she cannot sleep and has trouble walking. She has tried elevated her feet with pillows while she is sleeping and taking Ibuprofen/Tylenol with no relief. Denies any specific injury. She reports crampy pain in her bilateral lower extremities and feet. The pain is worse when she is walking and improves with rest. Dorsalis pedis and medial malleoli pulses 2+ bilaterally. Bilateral lower extremities tender to palpation. No erythema noted. We will get additional labs including iron profile, magnesium and TSH. He will also get PVRs to rule out venous insufficiency given her risk factors with smoking and hyperlipidemia. Further recommendations to follow. Patient has tried quitting smoking in the past. She has tried Wellbutrin and Chantix but had SE. She is down to half a PPD. She is not interested in starting medication at this time. She is interested in referral to smoking cessation counseling. Patient here for AWV and pillars. Lab work reviewed and is within normal limits. She is due for mammogram. Pap test 2 years ago and was normal. Colonoscopy 8 years ago and was normal. She is due for pneumonia and shingles vaccine; advised patient to complete these at the pharmacy. See additional plans below. Follow-up in 1 year for AWV. Future Tests Future scheduled test information is unavailable Pending Tests Pending diagnostic test information is unavailable Future Visits Future appointment information is unavailable Referrals to Other Providers Referral information is unavailable Future Procedures Future procedure information is unavailable Future Medications Future medication information is unavailable Patient Instructions Patient instructions are unavailable
--- NOTE | 2025-07-01 | XR_ITS ---
The [address] [address] Patient Name: SANTINO MCKEON MRN: [id number] date: 1965 Sex: F Assigned Patient Location: [facility] Current Patient Location: [facility] Accession/Order Number: [id number] Exam Date: 07/01/2025 09:18 Report Date: 07/01/2025 09:49 At the request of: GABRIEL QUINTEROS DO Procedure: XR shoulder LT min 2V LEFT SHOULDER - 4 views CLINICAL HISTORY: M25.512, shoulder pain for the past few months with pain. Patient was lifting bucket similar when the pain began. COMPARISON: None AP, Y, axillary and Grashey views were obtained. There is no evidence of fracture or dislocation. Mild hypertrophy is present at the acromioclavicular joint. And minimal subchondral cystic change and sclerosis is seen at the greater tuberosity. There are no significant soft tissue abnormalities. XR/XR shoulder LT min 2V IMPRESSION: NO ACUTE BONY FINDINGS. Impression dictated by: Margot Knott M.D. 07/01/2025 9:49 AM Dictation Location: [place] [address] Electronically authenticated by: [id number] Y Date: 07/01/2025 09:49
--- OUTSIDE RECORDS SUMMARY | 2025-07-01 09:17 | XMS_ITS | Clinical Summary ---
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 Active Viactiv Calcium Plus D 650-12.5-40 MG-MCG chewable tablet chew AND swallow 1 TABLET ONCE DAILY DIRECTED Active esomeprazole (NexIUM) [address] capsule 1 capsule 1 (one) time each day at the same time. Active losartan-hydroC HLOROthiazide (Hyzaar) 100-25 MG tablet Active naproxen sodium (Aleve) 220 MG tablet 1 (one) time each day at the same time. Active SUMAtriptan (Imitrex) 100 MG tablet Active Family History Medical History Relation Name Comments Diabetes Father Lewis Hager Hyperlipidemia Father Lewis Hager Hypertension Father Lewis Hager Migraines Father Lewis Hager Cancer Mother Jada Hager Diabetes Mother Jada Hager Hyperlipidemia Mother Jada Hager Hypertension Mother Jada Hager Relation Name Status Comments Father Lewis Hager Mother Jada Hager Social History Tobacco Use Types Packs/Day Years Used Date Smoking Tobacco: Every Day Cigarettes 0.5 15 Smokeless Tobacco: Never Tobacco Cessation:Counseling Given: Yes Alcohol Use Standard Drinks/Week Comments Yes 20 (1 standard drink = 0.6 oz pu re alcohol) AUDIT-C Answer Date Recorded Q1: How often do you have a drink containing alcohol? 4 or more times a week 08/28/2023 Q2: How many drinks containi ng alcohol do you have on a typical day when you are drinking? 5 or 6 Q3: How often do you have si x or more drinks on one occasion? Daily or almost daily 08/28/2023 Comments No Sex and Gender Information Value Date Recorded Sex Assigned at Not on file Legal Sex Female 6:59 PM EDT Gender Identity Female 12/26/2022 6:59 PM EDT Sexual Orientation Not on file Last Filed Vital Signs Vital Sign Reading Time Taken Comments Blood Pressure 122/70 08/28/2023 2:46 PM EST Pulse - - Temperature - - Respiratory Rate - - Oxygen Saturation - - Inhaled Oxygen Concentration - - Weight 85.7 kg (189 lb) 08/28/2023 2:46 PM EST Height 165.1 cm (5' 5 ) 08/22/2022 12:00 PM EST Body Mass Index 31.45 08/22/2022 12:00 PM EST Plan of Treatment Health Maintenance Due Date Last Done Comments CT Colonography 1965 Colonoscopy 1965 Colorectal Cancer Screening 1965 FIT-DNA 1965 FIT 1965 FOBT 1965 Sigmoidoscopy 1965 Pap Smear 1988 Cervical Cancer Screening 1997 HPV/Cotest 1997 Mammogram 11/14/2024 11/14/2023, 09/14, 10/03/2021, Additional history exists Influenza Vaccine (#1) 2025 , 07/13/2022, 07/21/2019, Additional history exists Procedures Procedure Name Priority Date/Time Associated Diagnosis Comments MAMMOGRAM-DIAGNOSTIC* Routine 11/14/2023 10:03 AM EST from Last 3 Months or Most Recently Relevant to Health Maintenance Results * MAMMOGRAM-DIAGNOSTIC* (11/14/2023 10:03 AM EST) Anatomical Region Laterality Modality Radiographic Lore ging Alhaji Mason MD IMG XR PROCEDURES Final Result from Last 3 Months or Most Recently Relevant to Health Maintenance Insurance [employer]
--- OUTSIDE RECORDS SUMMARY | 2025-07-01 09:17 | XMS_ITS | Encounter Summary ---
Author Organization [facility] Address [address] [address] Care Team Providers Care Rfid Systems Architect Name Role Phone Unavailable Primary Care Provider Unavailabl e Encounter Details Date Type Department Care Team (Late st Contact Info) Description 11/15/2023 Orders Only [facility] [address] [facility] [address] [place] [id number] Alhaji Mason MD [address] [facility] [address] [place] [address] Social History Tobacco Use Types Packs/Day Years Used Date Smoking Tobacco: Every Day Cigarettes 0.5 15 Smokeless Tobacco: Never Alcohol Use Standard Drinks/Week Comments Yes 20 [...] PM EDT Sexual Orientation Not on file documented as of this encounter Plan of Treatment Not on file documented as of this encounter Procedures Procedure Name Priority Date/Time Associated Diagnosis Comments MAMMOGRAM-DIAGNOSTIC* Routine 11/14/2023 10:03 AM EST documented in this encounter Results * MAMMOGRAM-DIAGNOSTIC* (11/14/2023 10:03 AM EST) Anatomical Region Laterality Modality Radiographic Lore ging Alhaji Mason MD IMG XR PROCEDURES Final Result documented in this encounter Visit Diagnoses Not on filedocumented in this encounter
== END 2025-07-01 09:14 | disposition home or self-care (01) ==
LOC: RAD 09:13
PROVIDERS: Visit Provider Physician Assistant
DX: M25.512 Pain in left shoulder (principal)
CPT/HCPCS: 73030